=== PATIENT | female | born 1935 | race Caucasian/White ===

== ENCOUNTER 2018-11-05 11:43 | Day surgery (SDC) | payer MEDICARE, BC ==
[2018-11-05] MEDS ORDERED: Phenylephrine 2.5% Ophth Soln 5 ML BOT ONE (12:27)
== END 2018-11-05 13:37 | disposition home or self-care (01) ==
LOC: SDC 11:43
PROVIDERS: ATTEND Ophthalmology
PROC: 085K3ZZ Destruction of Left Lens, Percutaneous Approach (ICD-10-PCS; principal; 2018-11-05)
PROC: 085J3ZZ Destruction of Right Lens, Percutaneous Approach (ICD-10-PCS; 2018-11-05)
DX: H26.493 Other secondary cataract, bilateral (principal); F03.90 Unspecified dementia, unspecified severity, without behavioral disturbance, psychotic disturbance, mood disturbance, and anxiety; Z96.1 Presence of intraocular lens